=== PATIENT | female | born 1990 | race Asian ===

== ENCOUNTER → 2016-11-12 | Outpatient (CLI) | payer OTHER ==
[~2016-11-12] MED LIST: PRENTAB26 PO
[2016-11-12 14:01] LABS: URINE APPEARANCE CLEAR (CLEAR); URINE BILIRUBIN NEG (NEG); URINE COLOR YELLOW; URINE EPITHELIAL CELL AUTO >30 /lpf (0-5); URINE NITRITE NEG (NEG); URINE SPECIFIC GRAVITY 1.007 (1.000-1.030); UROBILINOGEN NEG (NEG)
[2016-11-12 14:06] LABS: MANUAL MICROSCOPIC REQUIRED? NO; REVIEW REQ? NO
== END | disposition home or self-care (01) ==
LOC: C.LABSPEC 15:49
PROVIDERS: ATTEND Obstetrics & Gynecology
DX: Z34.00 Encounter for supervision of normal first pregnancy, unspecified trimester (principal)

== ENCOUNTER → 2016-11-16 | Outpatient (CLI) | payer OTHER ==
[2016-11-16 17:40] LABS: BASO % 0.1 %; BASO ABS # 0.01 K/uL (0-0.2); COMPLETE YES; EOS % 0.4 %; HEMATOCRIT 35.8 % (37-47); IG% 0.3 %; LYMPH % 16.6 %; LYMPH ABS # 1.11 K/uL (1.2-3.4); MEAN CELL VOLUME 84.4 fL (80-100); MEAN CORPUSCULAR HEMOGLOBIN 30.4 pg (25-34); MEAN PLATELET VOLUME 8.8 fL (7.4-10.4); MONO % 6.1 %; NEUT % 76.5 %; PLATELET COUNT 169 K/uL (130-400); RED BLOOD COUNT 4.24 M/uL (4.2-5.4); WHITE BLOOD COUNT 6.67 K/uL (4.8-10.8)
[2016-11-19 02:35] LABS: CHLAMYDIA TRACH RNA*** NOT DETECTED (NOT DETECTED); GC (NEIS GONORRHOEAE)RNA** NOT DETECTED (NOT DETECTED)
== END | disposition home or self-care (01) ==
LOC: C.LAB1850 16:22
PROVIDERS: ATTEND Obstetrics & Gynecology
DX: Z34.00 Encounter for supervision of normal first pregnancy, unspecified trimester (principal)

== ENCOUNTER → 2017-01-14 | Outpatient (CLI) | payer OTHER ==
[2017-01-14 14:56] LABS: GTGD 50 Grams
[2017-01-18 18:24] LABS: AFP CONCENTRATION 60.6 NG/ML; AFP MULTIPLE OF MEDIAN 1.18; AFPTS GESTATIONAL AGE 18.1 WEEKS; AFPTS INSULIN DEP DIABETIC? NO; AFPTS MATERNAL WT 121 LBS; EDD DETERMINED BY ULTRASOUND; HISTORY OF NTD NO; REPEAT SAMPLE? NO
== END | disposition home or self-care (01) ==
LOC: C.LAB1850 11:19
PROVIDERS: ATTEND Obstetrics & Gynecology
DX: Z34.02 Encounter for supervision of normal first pregnancy, second trimester (principal)

== ENCOUNTER → 2017-03-26 | Outpatient (CLI) | payer OTHER ==
[2017-03-26 15:40] LABS: HEMATOCRIT 30.8 % (37-47)
[2017-03-26 17:58] LABS: GTGD 50 Grams
--- NOTE | 2017-06-20 08:28 | Progress Note ---
Progress Note Date of Service Jun 20, 2017. Progress Note Patient seen yesterday afternoon (Jun 19, 2017) to reassess neuraxial block. Patient reported that after removal of catheter yesterday morning the block fully resolved. She was up ambulating independently without difficulty during the day yesterday. Full strength and normal sensatioin in both lower extremities. Patient was happy with anesthetic care and had no other questions or concerns.
== END | disposition home or self-care (01) ==
LOC: C.LAB1850 14:02
PROVIDERS: ATTEND Obstetrics & Gynecology
DX: Z34.03 Encounter for supervision of normal first pregnancy, third trimester (principal)

== ENCOUNTER → 2017-03-26 | Outpatient (CLI) | payer OTHER ==
[2017-03-26 15:33] LABS: URINE APPEARANCE CLEAR (CLEAR); URINE BILIRUBIN NEG (NEG); URINE COLOR YELLOW; URINE EPITHELIAL CELL AUTO >30 /lpf (0-5); URINE NITRITE NEG (NEG); URINE SPECIFIC GRAVITY 1.007 (1.000-1.030); UROBILINOGEN NEG (NEG)
[2017-03-26 15:43] LABS: MANUAL MICROSCOPIC REQUIRED? NO; REVIEW REQ? NO
== END | disposition home or self-care (01) ==
LOC: C.LABSPEC 14:52
PROVIDERS: ATTEND Obstetrics & Gynecology
DX: Z34.03 Encounter for supervision of normal first pregnancy, third trimester (principal)

== ENCOUNTER → 2017-05-25 | Outpatient (CLI) | payer OTHER | END | disposition home or self-care (01) | LOC: C.LABSPEC 14:24 | PROVIDERS: ATTEND Obstetrics & Gynecology | DX: Z34.03 Encounter for supervision of normal first pregnancy, third trimester (principal) ==

== ENCOUNTER 2017-06-18 11:24 | Inpatient (IN) | payer OTHER ==
[~2017-06-18] VITALS: Ht 162.6 cm; Wt 58.6 kg
[2017-06-18] MEDS ORDERED: PRENTAB26 PO (12:29)
[2017-06-18 12:30] VITALS: Ht 162.6 cm; Wt 58.6 kg
[2017-06-18] MEDS ORDERED: LACTATED RINGER'S 1000ML 1,000 ML IV PRN (12:41)
[2017-06-18] MEDS ORDERED: OXYTOCIN 30 UNITS/500ML NSS IV PRN (13:00)
[2017-06-18] MEDS ORDERED: LACTATED RINGER'S 1000ML 500 ML IV PRN ×2 (13:00→17:57)
[2017-06-18 13:11] LABS: HEMATOCRIT 33.1 % (37-47); MEAN CELL VOLUME 92.5 fL (80-100); MEAN CORPUSCULAR HEMOGLOBIN 32.4 pg (25-34); MEAN PLATELET VOLUME 9.6 fL (7.4-10.4); PLATELET COUNT 116 K/uL (130-400); RED BLOOD COUNT 3.58 M/uL (4.2-5.4); WHITE BLOOD COUNT 9.31 K/uL (4.8-10.8)
[2017-06-18] MEDS: LACTATED RINGER'S 1000ML 1,000 ML IV SCH ×2 (13:49→21:16)
[2017-06-18 14:19] LABS: ALT/SGPT 15 U/L (12-78); AST/SGOT 14 U/L (15-37); BLOOD UREA NITROGEN 5 mg/dl (7-18); BUN/CREATININE RATIO 10.7 (10-20); CALCIUM 8.4 mg/dl (8.5-10.1); CARBON DIOXIDE 24 mmol/L (21-32); CHLORIDE 107 mmol/L (98-107); CREATININE 0.47 mg/dl (0.60-1.20); GLUCOSE 69 mg/dl (70-99); POTASSIUM 3.6 mmol/L (3.5-5.1); SODIUM 137 mmol/L (136-145)
[2017-06-18 14:21] LABS: ALB/GLOB RATIO 0.7 (0.9-2); ALKALINE PHOSPHATASE 129 U/L (45-117)
[2017-06-18] MEDS ORDERED: BUPIVACAINE 0.25% 30 ML VIAL ONE (17:09)
[2017-06-18] MEDS ORDERED: EpHEDrine SULFATE INJ 50 MG/ML AMP ONE (17:09)
[2017-06-18] MEDS ORDERED: FENTANYL 2MCG/ML ROPIV 1.25MG/ML 100ML BAG EPI ONE (17:09)
[2017-06-18] MEDS ORDERED: FENTANYL CITRATE INJ 50 MCG/1 ML 2 ML VIAL ONE (17:10)
[2017-06-18] MEDS ORDERED: EpHEDrine SULFATE INJ 50 MG/ML AMP IV PRN (18:00)
[2017-06-18] MEDS ORDERED: NALOXONE HCL INJ 0.4 MG/1 ML VIAL/CARP IV PRN (18:00)
[2017-06-18] MEDS: FENTANYL 2MCG/ML ROPIV 1.25MG/ML 100ML BAG EPI PRN ×2 (21:51→22:54)
[2017-06-19] MEDS: FENTANYL 2MCG/ML ROPIV 1.25MG/ML 100ML BAG EPI PRN (01:03)
[2017-06-19] MEDS ORDERED: METHYLERGONOVINE MALEATE 0.2 MG/ML AMP ONE (02:34)
[2017-06-19] MEDS ORDERED: ACETAMINOPHEN 325 MG TAB PO PRN (03:00)
[2017-06-19] MEDS ORDERED: HYDROCORTISONE ACETATE 25 MG SUPP PR PRN (03:00)
[2017-06-19] MEDS ORDERED: OXYTOCIN 30 UNITS/500ML NSS IV PRN (03:00)
[2017-06-19] MEDS ORDERED: SUPERCREAM 0.870 % 15GM JAR EXT PRN (03:00)
[2017-06-19] MEDS ORDERED: BENZOCAINE 20% AER SPR 82.5 GM CAN EXT PRN (03:00)
[2017-06-19] MEDS ORDERED: OXYCODONE/ACETAMINOPHEN 5-325 TAB PO PRN (03:00)
[2017-06-19] MEDS ORDERED: DIPHTHERIA/TETANUS/PERTUSSIS 0.5 ML SYR/VIAL IM. ONE (03:00)
[2017-06-19] MEDS ORDERED: METHYLERGONOVINE MALEATE 0.2 MG/ML AMP IM ONE (03:00)
[2017-06-19] MEDS ORDERED: ACETAMINOPHEN/CODEINE 300/30MG TAB PO PRN ×2 (03:00)
[2017-06-19] MEDS ORDERED: LANOLIN OINT EXT PRN ×2 (03:00)
[2017-06-19] MEDS ORDERED: IBUPROFEN 600 MG TAB PO PRN (03:00)
--- NOTE | 2017-06-19 04:05 | DELIVERY SUMMARY ---
DATE OF OPERATION: 06/19/2017 PREOPERATIVE DIANGOSES: 1. Intrauterine at 40 and 3/7 weeks. 2. Premature rupture of membranes prior to the onset of labor. POSTOPERATIVE DIAGNOSES: 1. Intrauterine at 40 and 3/7 weeks. 2. Premature rupture of membranes prior to the onset of labor. PROCEDURES: 1. Pitocin augmentation. 2. Epidural anesthesia. 3. Normal spontaneous vaginal delivery. 4. Second degree perineal laceration with repair. SURGEON: Pallavi Mckinney MD ANESTHESIA: Epidural. ESTIMATED BLOOD LOSS: 500 mL. DESCRIPTION OF PROCEDURE: The patient presented to labor and delivery when she was found to be grossly ruptured in the office. She was 2 to 3 cm, 50% at that time. Fluid had noted to be clear. Pitocin augmentation was initiated and when she was 4 cm, she underwent an epidural anesthesia. She then progressed slowly with Pitocin augmentation to complete-complete and +2 station. Clear fluid continued to be noted. She labored down for an hour and then began pushing. The patient pushed with very good effort. heart tones during pushing were in the 150s with moderate variability, small accels and variable decelerations with contractions. During pushing she had some pretty steady minimal vaginal bleeding likely from hymenal tears and possibly vaginal tears. She did push to deliver a viable male infant in ROP presentation. There was no a nuchal cord x1, was reduced without difficulty. The nose and mouth were bulb suctioned and the rest of the was then delivered. During delivery of the rest of the , thickish meconium was noted. The baby made an effort to cry, so the nose and mouth were bulb suctioned and the baby was stimulated. The cord was clamped and cut and the baby was taken over to the awaiting bassinet for drying and attention by nursery. Cord blood and gases were obtained. The placenta was delivered spontaneously intact with a 3-vessel cord. Cervix, sulci and rectum were examined and found to be intact. There is a stellate vaginal second degree laceration was repaired in a normal fashion with 3-0 and 4-0 Vicryl. Hemostasis was obtained with dilute Pitocin and uterine massage, and 1 dose of IM Methergine. Estimated blood loss 500 mL. The baby had been transferred to the nursery and Apgars were pending. Mother doing well at the end of the delivery. I attest to the content of the Intraoperative Record and any orders documented therein. Any exceptions are noted below. MTDD
[2017-06-19 05:30] VITALS: BP 119/69; PULSE 67; TEMP 37
[2017-06-19] MEDS: PRENATAL VITAMIN TAB PO SCH (07:51)
[2017-06-19] MEDS: DOCUSATE SODIUM 100 MG CAP PO SCH ×2 (07:51→20:14)
--- NOTE | 2017-06-19 08:09 | Anesthesia Procedure Note ---
Anesthesia Epidural Removal Nt Date & Time Jun 19, 2017 at 07:49 Vital Signs Pain Intensity: 0.0 Vital Signs Past 12 Hours Date Time Temp Pulse Resp B/P (MAP) Pulse Ox O2 Delivery O2 Flow Rate FiO2 06/19/17 05:30 37.0 67 20 119/69 (86) Room Air Notes Mental Status: alert / awake / arousable, participated in evaluation Nausea / Vomiting: adequately controlled Pain: adequately controlled Airway Patency, RR, SpO2: stable & adequate BP & HR: stable & adequate Hydration State: stable & adequate Neuraxial Anesthesia: was administered, sensory block is resolving Anesthetic Complications: as follows Epidural: removed without complications, with tip intact Notes: Epidural removed without incident, tip intact. Site is clean and dry with bandaid applied over insertion site. Patient states that the infusion was turned off around 2 AM, but patient continues to have residual numbness and tingling in the left leg. On exam, patient endorses altered sensation along the entire left leg, normal sensation on the right. On leg raise test, patient has normal strength on the right and strength only against gravity on the left. Spoke with patient at length and reassured her that at this time, unilateral symptoms are reassuring and unlikely to be secondary to a major epidural complication. Patient is particularly concerned because she felt a brief left sided parasthesia during placement and she felt the left side was more "numb" than the right while the epidural was running. It is possible that the epidural block is resolving slowly from the left leg or that the catheter was causing some irritation to the left nerve root. Also possible, due to the unilateral nature of the symptoms that this is due to a peripheral nerve injury during the birthing process/positioning and not epidural related. Will reassess later today now that catheter is removed and the block has had more time to resolve. Nursing team made aware since patient's weakness on left side would necessitate assistance with ambulation.
[2017-06-19 08:30] VITALS: BP 96/56; PULSE 75; TEMP 37; O2SAT 96
[2017-06-19 12:27] VITALS: BP 103/61; PULSE 78; TEMP 36.6; O2SAT 97
[2017-06-19 15:30] VITALS: BP 88/45; PULSE 85; TEMP 36.6
[2017-06-19 19:00] VITALS: BP 92/62; PULSE 106; TEMP 35.6
--- NOTE | 2017-06-19 21:21 | Discharge Instructions ---
Discharge Instructions Date of Service Jun 19, 2017. Admission Reason for Admission: R/O Rupture Of Membranes Discharge Discharge Diagnosis / Problem: normal delivery Discharge Goals Goal(s): Routine recovery after delivery Medications Continue Dispensed Medications: supercream, dermaplast, tucks, lansinoh Activity Recommendations Activity Limitations: per Instructions/Follow-up section . Instructions / Follow-Up Instructions / Follow-Up ACTIVITY RECOMMENDATIONS: * Gradual return to full activity over the next 2-3 weeks. * No lifting - nothing heavier than baby over the next 2-3 weeks. * Do not engage in vigorous exercise, sexual activity or sports until cleared by your physician. * Do not drive or operate any motorized equipment until cleared by your physician. * You may shower/bathe daily. MEDICATIONS: For discomfort or pain, you may use Acetaminophen (Tylenol), Ibuprofen (Advil), or Naproxen (Aleve) following the package directions. For constipation you may use Colace following the package directions. BREAST CARE: If you are not breast feeding: * Wear a supportive bra 24 hours a day for one to two weeks. * Avoid stimulating your breasts and nipples as much as possible during the first few weeks after delivery. * When taking a shower, have the warm water hit your back, not breasts. * When your breasts feel full, apply ice packs. Usually three to four times a day helps ease the discomfort. * Take a mild pain medication (Tylenol / Motrin) when you are uncomfortable. If breast feeding: * Use breast milk to lubricate nipples. Lansinoh cream may be used for sore nipples. You do not need to remove cream prior to breast feeding. If using a different brand of cream, check the label for directions regarding removal of cream prior to nursing. * Wear a supportive bra. * If having problems with breasts or breast feeding, call a communications consultant or your health care provider. EPISIOTOMY CARE: After delivery, if you have an episiotomy (stitches), the following steps will ease discomfort and aid healing. * For the first 24 hours after delivery, place ice packs next to your episiotomy to help reduce swelling. * After the first 24 hour-period, sitz baths, either portable or in the tub, are suggested. A shower with a shower arm sprayed over the episiotomy may be comforting. * Carolyn care should be done after each voiding and bowel movement. Squirt warm water from a plastic bottle over the perineum (region of the body between the anus and urinary opening) and pat dry. * Use Dermoplast to ease discomfort. Shake container. [place] directly over the episiotomy. Place a Tucks on a clean sanitary pad next to your episiotomy. SPECIAL CARE INSTRUCTIONS: When you are discharged from the hospital, it is important for you to follow the instructions listed below: * During the first week at home, you should be able to care for yourself and your baby. In addition, the usual light household activities are encouraged. * Limit your activities to the way you feel. Do not try to clean the house or move furniture. Be sensible. * If you actively engage in sports and have done so up until the time of your delivery, you may resume these activities as soon as you feel able. This may take up to one month or even longer. Use good judgment. * Continue to take your vitamins for at least six weeks after the of your baby. * Your diet need not be limited unless you were on a special diet before your delivery. Breast-feeding mothers need around 2500 calories per day and at least 64-80 ounces of fluid per day (8 to 10 glasses). * You should eat foods from the four major food groups. Crash diets or fad diets are to be avoided. Eating lean meats, fresh fruits and vegetables, low-fat dairy products, high fiber foods and a regular exercise program, will help you get back to your pre- weight without putting your health at risk. * Constipation is sometimes a problem after delivery. Take a mild laxative as needed. If breast feeding, Milk of Magnesia is acceptable to use. You may use a suppository or Fleets enema if no episiotomy. * A daily shower or tub bath is suggested. Be sure to thoroughly and gently dry the perineum. * A bloody vaginal discharge will usually continue until around four weeks post . A small amount of bleeding may continue for as long as six weeks. Vaginal discharge changes from the bright red bleeding after delivery to pink then brownish and finally yellowish-pink before becoming white and disappearing. * Bleeding may increase with activity. Your first period may come in 4-8 weeks. If you are breast feeding, your period may be delayed even longer. * [address] (sex) can begin whenever both you and your partner feel comfortable and do not have any form of genital infection. It is recommended that you wait at least six weeks for internal and external healing to occur. If you have questions, please talk to your health care practitioner. A condom should be used to prevent infection and . * Foreplay, gentle intercourse and lubrication is very important the first several times to prevent pain. A water-based lubricant such as K-Y jelly or Astroglide may be used. * If you have RH negative blood and your baby is RH positive, you will receive RHOGAM by injection prior to discharge. The nurse will give you a card to keep with you that has the date and place that you received RHOGAM after delivery. * During your care, you had a Rubella screen done to check for the presence of rubella antibodies in your blood. If your test was negative, you will receive a Rubella vaccine prior to discharge. This vaccine may cause a fever, soreness at the injection site and flu-like symptoms. If these symptoms persist, notify your health care practitioner. is not advised for one month after a Rubella vaccine. * Verbalizes understanding of car seat law as reviewed with patient nursing. * Car Seat hand-out given and reviewed with patient by nursing. * Shaken baby information reviewed with patient by nursing. Call you doctor if: * Heavy bleeding (saturating several pads an hour) or passing clots the size of your fist. * A fever >101 degrees F (38.3 degrees C) on two occasions four hours apart and /or chills. * Unusual pain in the pelvic or vaginal areas. * "Baby Blues" lasting longer than two weeks. If you have any questions or concerns, call your health care practitioner at . FOLLOW UP VISIT: * Please call the office at to schedule a 6 week examination. It is important you keep this appointment. It is important for you to make arrangements for either yearly or twice yearly check-ups thereafter. Current Hospital Diet Patient's current hospital diet: Regular OB Diet Discharge Diet Recommended Diet: Regular OB Diet Pending Studies Studies pending at discharge: no Medical Emergencies . Who to Call and When: Medical Emergencies: If at any time you feel your situation is an emergency, please call 911 immediately. . Non-Emergent Contact Non-Emergency issues call your: Electrical And Instrument Mechanic . . "Provider Documentation" section prepared by Maranda Pierce. . VTE Core Measure Inpt VTE Proph given/why not?: Treatment not indicated
[2017-06-20 00:30] VITALS: BP 89/51; PULSE 81; TEMP 36.7; O2SAT 98
[2017-06-20 07:23] LABS: HEMATOCRIT 27.9 % (37-47); MEAN CELL VOLUME 93.6 fL (80-100); MEAN CORPUSCULAR HEMOGLOBIN 30.9 pg (25-34); MEAN PLATELET VOLUME 9.3 fL (7.4-10.4); PLATELET COUNT 118 K/uL (130-400); RED BLOOD COUNT 2.98 M/uL (4.2-5.4)
[2017-06-20 07:31] VITALS: BP 95/55; PULSE 78; TEMP 36.4; O2SAT 98
[2017-06-20] MEDS: PRENATAL VITAMIN TAB PO SCH (07:54)
[2017-06-20] MEDS: DOCUSATE SODIUM 100 MG CAP PO SCH ×2 (07:54→20:17)
--- NOTE | 2017-06-20 08:53 | Progress Note ---
Subjective Jun 20, 2017. Subjective conversation w/ patient, physical exam Ambulation: ambulating normally Voiding: no voiding problems Passing Gas: Yes Diet Tolerance: Regular Diet Lochia: Small Feeding Type: Breast Feeding Review of Systems Constitutional: No fever, No chills, No sweats, No weight loss, No weakness, No fatigue, No problem reported Respiratory: No cough, No sputum, No wheezing, No shortness of breath, No dyspnea on exertion, No dyspnea at rest, No hemoptysis, No problem reported Breast: No see HPI, No breast lump, No change in shape, No nipple discharge, No breast pain, No problem reported Female : No see HPI, No dysuria, No urinary frequency, No hematuria, No incontinence, No abnormal vaginal bleeding, No vaginal discharge, No problem reported Objective Vital Signs Date Time Temp Pulse Resp B/P (MAP) Pulse Ox O2 Delivery O2 Flow Rate FiO2 06/20/17 08:00 Room Air 06/20/17 07:31 36.4 78 16 95/55 (68) 98 Room Air 06/20/17 00:30 Room Air 06/20/17 00:30 36.7 81 16 89/51 (64) 98 Room Air 06/19/17 19:00 35.6 106 20 92/62 (72) Room Air 06/19/17 15:30 36.6 85 20 88/45 (59) Room Air 06/19/17 15:30 Room Air 06/19/17 12:27 36.6 78 20 103/61 (75) 97 Room Air Physical Exam General Appearance: WELL-APPEARING, NO APPARENT DISTRESS Abdomen: non tender, soft Fundus: Firm, Non-Tender, Relation to Umbilicus (2 below U) Extremities: no calf tenderness Laboratory Results Last 24 Hours Test 06/20/17 06:57 White Blood Count 10.20 K/uL Red Blood Count 2.98 M/uL Hemoglobin 9.2 g/dL Hematocrit 27.9 % Mean Corpuscular Volume 93.6 fL Mean Corpuscular Hemoglobin 30.9 pg Mean Corpuscular Hemoglobin Concent 33.0 g/dl RDW Standard Deviation 43.3 fL RDW Coefficient of Variation 12.8 % Platelet Count 118 K/uL Mean Platelet Volume 9.3 fL Assessment and Plan Day#: 1 Continue Routine Care: stable course baby on level 2 bed continue current care plan
[2017-06-20 15:15] VITALS: BP 88/51; PULSE 76; TEMP 36.6; O2SAT 98
[2017-06-20 23:45] VITALS: BP 99/58; PULSE 71; TEMP 36.7
--- NOTE | 2017-06-21 06:04 | OB/GYN Progress Note ---
BAGGAGE CHECKER Progress Note Date of Service Jun 21, 2017. Subjective conversation w/ patient, physical exam, chart review, lab review Ambulation: ambulating normally Voiding: no voiding problems Diet Tolerance: Regular Diet Lochia: Small Feeding Type: Breast Feeding Pain: in no sig pain Review of Systems Constitutional: No fever Cardiac: No chest pain Abdomen: No nausea, No vomiting Female : No dysuria Objective Vital Signs Date Time Temp Pulse Resp B/P (MAP) Pulse Ox O2 Delivery O2 Flow Rate FiO2 06/20/17 23:45 Room Air 06/20/17 23:45 36.7 71 20 99/58 (72) Room Air 06/20/17 15:15 Room Air 06/20/17 15:15 36.6 76 16 88/51 (63) 98 Room Air 06/20/17 08:00 Room Air 06/20/17 07:31 36.4 78 16 95/55 (68) 98 Room Air Physical Exam General Appearance: WELL-APPEARING Respiratory/Chest: lungs clear, normal breath sounds, no respiratory distress Cardiovascular: regular rate, rhythm Abdomen: normal bowel sounds, non tender, soft Fundus: Firm, Relation to Umbilicus (3 below U) Extremities: non-tender, normal inspection, no pedal edema Laboratory Results Last 24 Hours Test 06/20/17 06:57 White Blood Count 10.20 K/uL Red Blood Count 2.98 M/uL Hemoglobin 9.2 g/dL Hematocrit 27.9 % Mean Corpuscular Volume 93.6 fL Mean Corpuscular Hemoglobin 30.9 pg Mean Corpuscular Hemoglobin Concent 33.0 g/dl RDW Standard Deviation 43.3 fL RDW Coefficient of Variation 12.8 % Platelet Count 118 K/uL Mean Platelet Volume 9.3 fL Medications Current Inpatient Medications Medications (Trade) Dose Ordered Sig/Jefry Route Start Time Stop Time Status Last Admin Dose Admin Oxytocin (Pitocin IV) 30 units UD PRN IV 06/19/17 03:00 07/19/17 02:59 Benzocaine (Dermoplast Aero Spr) 1 appln PRN PRN EXT 06/19/17 03:00 07/19/17 02:59 Cocaine HCl (Supercream 0.870% Cr) BID PRN EXT 06/19/17 03:00 07/03/17 02:59 Hydrocortisone Acetate (Anusol Hc Supp) 25 mg BID PRN NV 8/12/17 03:00 07/19/17 02:59 Lanolin (Lanolin Oint) PRN PRN EXT 06/19/17 03:00 07/19/17 02:59 Prenat Multivit/ Trust Accounts Supervisor/Iron/Folic Ac ( Vitamin Tab) 1 tab DAILY PO 06/19/17 08:00 07/19/17 07:59 06/20/17 07:54 1 TAB Ibuprofen (Motrin Tab) 600 mg Q4H PRN PO 06/19/17 03:00 07/19/17 02:59 Acetaminophen (Tylenol Tab) 650 mg Q6H PRN PO 06/19/17 03:00 07/19/17 02:59 Acetaminophen/ Codeine Phosphate (Tylenol w/ Codeine #3 Tab) 1 tab Q4H PRN PO 06/19/17 03:00 07/19/17 02:59 Acetaminophen/ Codeine Phosphate (Tylenol w/ Codeine #3 Tab) 2 tab Q4H PRN PO 06/19/17 03:00 07/19/17 02:59 Docusate Sodium (coLACE CAP) 100 mg BID PO 06/19/17 08:00 07/19/17 07:59 06/20/17 20:17 100 MG Assessment and Plan Post- Day Number: 2 Continue Routine Care: Resident Physician Supervision Note: I was present with Dr. Mae during the history and exam. I discussed the case with the resident and agree with the findings and plan as documented in the note. Any exceptions or clarifications are listed here: [None] Documented By: Maranda Pierce A/P: This is a 27 y/o female, , s/p normal vaginal delivery. She is ambulating and clinically stable to discharge. - Vital signs are reviewed and WNL (Tmax 36.7) - Last Hgb 9.2 (06/20) - Blood type A+, GBS neg, Rubella Immune - No signs of depression. - Routine care - Discussed resting, feeding, pain control, mastitis, control, follow up in 6 weeks and reasons to call sooner, if necessary. - Continue with pain medication as needed, and continue vitamins. - Encourage breast feeding and educate about breast feeding - Patient understands and keen for home. - Plan to discharge home Resident Involvement: Resident Care Provided Care Provided: OB Delivery
[2017-06-21 07:33] VITALS: BP 90/56; PULSE 68; TEMP 36.6; O2SAT 97
[2017-06-21] MEDS: PRENATAL VITAMIN TAB PO SCH (08:33)
[2017-06-21] MEDS: DOCUSATE SODIUM 100 MG CAP PO SCH (08:33)
[2017-06-21 16:45] VITALS: BP 93/58; PULSE 81; TEMP 36.9
[2017-06-21 19:18] VITALS: BP_DIAS 58; PULSE 81; TEMP 36.9
== END 2017-06-21 19:45 | disposition home or self-care (01) | DRG 775 ==
LOC: C.OPB 11:24 → C.LD 11:24 → C.OPB 12:43 → C.LD 12:43 → C.OBG 06-19 05:49
PROVIDERS: ADMIT Obstetrics & Gynecology; ATTEND Obstetrics & Gynecology
PROC: 0KQM0ZZ Repair Perineum Muscle, Open Approach (ICD-10-PCS; principal; 2017-06-19)
PROC: 10E0XZZ Delivery of Products of Conception, External Approach (ICD-10-PCS; principal; 2017-06-19)
DX: O70.1 Second degree perineal laceration during delivery (principal); O69.81X1 Labor and delivery complicated by cord around neck, without compression, fetus 1; Z37.0 Single live birth; Z3A.40 40 weeks gestation of pregnancy